=== PATIENT | male | born 1965 | race Two or more races ===

== ENCOUNTER 2023-01-19 17:20 | Inpatient (IN) | payer MEDICAID, OTHER ==
[~2023-01-19] VITALS: Ht 182.9 cm; Wt 92.8 kg
[2023-01-19 18:19] LABS: Basophils # (auto) 0 10 ^3/uL (0-0.2); Basophils % (auto) 0.4 % (0.0-2.0); Eosinophils # (auto) 0.1 10 ^3/uL (0-0.8); Eosinophils % (auto) 1.2 % (0.0-7.0); Hematocrit 48.6 % (41.0-53.0); Hemoglobin 16.6 g/dL (13.5-17.5); Lymphocytes # (auto) 2.5 10 ^3/uL (0.4-5.4); Lymphocytes % (auto) 25.9 % (10.0-50.0); Mean Corpuscular Hemoglobin 31.7 pg (28.0-32.0); Mean Corpuscular Hgb Conc. 34.2 g/dL (32.0-36.0); Mean Corpuscular Volume 92.7 fL (80.0-100.0); Monocytes # (auto) 0.7 10 ^3/uL (0-1.3); Monocytes % (auto) 7.3 % (0.0-12.0); Neutrophils # (auto) 6.2 10 ^3/uL (1.6-8.6); Neutrophils % (auto) 65.2 % (37.0-80.0); Nucleated Red Blood Cells % 0.1 %; Red Blood Cells 5.24 10^6/uL (4.5-5.90); Red Cell Distribution Width 12.5 % (11.8-14.3); White Blood Cell 9.5 10^3/uL (4.4-10.8)
[2023-01-19 18:43] LABS: INR 1.06 (0.9-1.15); Partial Thromboplastin Time 29.1 SEC (24.5-34.5); Prothrombin Time 11.1 sec (9.3-11.8)
[2023-01-19 18:45] LABS: Alanine Aminotransferase 40 U/L (7-40); Albumin 4.9 g/dL (3.2-4.8); Alkaline Phosphatase 89 U/L (46-116); Anion Gap 9 (5-15); Aspartate Aminotransferase 28 U/L (13-40); BUN/Creatinine Ratio 17.6 (10.0-20.0); Blood Urea Nitrogen 16 mg/dL (9-23); Calcium 9.8 mg/dL (8.5-10.1); Carbon Dioxide 25 mmol/L (20-30); Chloride 102 mmol/L (98-107); Glucose 123 mg/dL (74-106); Potassium 4.2 mmol/L (3.5-5.1); Sodium 136 mmol/L (136-145)
[2023-01-19 18:46] LABS: Bilirubin, Total 0.5 mg/dL (0.2-1.0); Total Protein 7.9 g/dL (5.7-8.2)
[2023-01-19] MEDS ORDERED: ASPirin 81 mg TAB PO ONE (19:30)
[2023-01-19] MEDS ORDERED: ONDANSETRON HCL 4 MG/2 ML VIAL IV PRN (21:00)
[2023-01-19] MEDS ORDERED: MORPHINE SULFATE INJ 2 MG/ml SYRG IV PRN (21:00)
[2023-01-19] MEDS ORDERED: NITROGLYCERIN 0.4 MG SL TAB SL PRN (21:00)
[2023-01-19] MEDS ORDERED: ACETAMINOPHEN 325 MG TAB PO PRN (21:00)
[2023-01-19] MEDS ORDERED: DEXTROSE (50%) 50ML SYRG IV PRN (21:15)
[2023-01-19] MEDS: ATORVASTATIN 20 MG TAB PO SCH (22:00)
[2023-01-19] MEDS: ACCU-CHEK COMFORT CURVE STRIP VI SCH (22:00)
[2023-01-19] MEDS: InsuLIN REG 1unit/0.01ml Soln (100units/ml) SC SCH (22:00)
[2023-01-19 23:03] VITALS: PULSE 77; RESP 16; O2SAT 99
[2023-01-20 07:14] LABS: Basophils # (auto) 0.1 10 ^3/uL (0-0.2); Basophils % (auto) 0.6 % (0.0-2.0); Eosinophils # (auto) 0.2 10 ^3/uL (0-0.8); Eosinophils % (auto) 1.9 % (0.0-7.0); Hematocrit 46.6 % (41.0-53.0); Lymphocytes # (auto) 2.5 10 ^3/uL (0.4-5.4); Lymphocytes % (auto) 31.9 % (10.0-50.0); Mean Corpuscular Hemoglobin 31.9 pg (28.0-32.0); Mean Corpuscular Hgb Conc. 34.4 g/dL (32.0-36.0); Mean Corpuscular Volume 92.5 fL (80.0-100.0); Monocytes # (auto) 0.7 10 ^3/uL (0-1.3); Monocytes % (auto) 9.3 % (0.0-12.0); Neutrophils # (auto) 4.4 10 ^3/uL (1.6-8.6); Neutrophils % (auto) 56.3 % (37.0-80.0); Nucleated Red Blood Cells % 0.1 %; Red Blood Cells 5.04 10^6/uL (4.5-5.90); Red Cell Distribution Width 12.4 % (11.8-14.3); White Blood Cell 7.9 10^3/uL (4.4-10.8)
[2023-01-20 07:33] LABS: Chloride 101 mmol/L (98-107); Potassium 3.9 mmol/L (3.5-5.1); Sodium 134 mmol/L (136-145)
[2023-01-20 07:34] LABS: Anion Gap 8 (5-15); Calcium 9.6 mg/dL (8.5-10.1); Carbon Dioxide 25 mmol/L (20-30)
[2023-01-20 07:39] LABS: BUN/Creatinine Ratio 12.8 (10.0-20.0); Blood Urea Nitrogen 11 mg/dL (9-23); Glucose 181 mg/dL (74-106)
[2023-01-20] MEDS: ACCU-CHEK COMFORT CURVE STRIP VI SCH ×4 (08:10→22:28)
[2023-01-20] MEDS: InsuLIN REG 1unit/0.01ml Soln (100units/ml) SC SCH ×4 (09:03→22:32)
[2023-01-20] MEDS ORDERED: ENOXAPARIN SOD 40 MG/0.4 ML SYRINGE SC SCH (10:00)
[2023-01-20] MEDS: amLODIPine BESYLATE 5 MG TAB PO SCH (10:00)
[2023-01-20] MEDS: ASPirin 81 mg TAB PO SCH (10:19)
[2023-01-20] MEDS ORDERED: PANTOPRAZOLE 40 MG TAB PO ONE (11:45)
[2023-01-20] MEDS: NICOTINE 14 MG/24HR TOPICAL PATCH TD ONE ×2 (13:30→13:50)
[2023-01-20 15:12] LABS: Triglycerides 425 mg/dL (< 150)
[2023-01-20 15:13] LABS: Blood Alcohol 3.2 mg/dL (<10)
[2023-01-20 15:14] LABS: Cholesterol 172 mg/dL (< 200); HDL Cholesterol 31 mg/dL (40-59)
[2023-01-20] MEDS: ATORVASTATIN 20 MG TAB PO SCH (22:28)
[2023-01-20] MEDS ORDERED: THIA100T10 GT (23:21)
[2023-01-20] MEDS ORDERED: PANT1INJ3 IV (23:21)
[2023-01-20] MEDS ORDERED: GLYB5TAB9 PO (23:23)
[2023-01-20] MEDS ORDERED: AMLO1TAB23 PO (23:25)
[2023-01-20] MEDS ORDERED: ACET-1304 PO (23:25)
[2023-01-20 23:28] VITALS: BP 133/74; PULSE 65; RESP 18; TEMP 98.5; O2SAT 97
[2023-01-21] VITALS (11 sets, daily range): BP systolic 115–162; BP diastolic 63–89; PULSE 64–72; RESP 11–20; TEMP 97.6–98.4; O2SAT 94–100
[2023-01-21] MEDS: InsuLIN REG 1unit/0.01ml Soln (100units/ml) SC SCH ×4 (06:31→22:24)
[2023-01-21] MEDS: ACCU-CHEK COMFORT CURVE STRIP VI SCH ×4 (06:39→22:20)
[2023-01-21] MEDS: PANTOPRAZOLE 40 MG TAB PO SCH (09:43)
[2023-01-21] MEDS: ASPirin 81 mg TAB PO SCH (09:43)
[2023-01-21] MEDS: amLODIPine BESYLATE 5 MG TAB PO SCH (09:44)
[2023-01-21] MEDS: NICOTINE 14 MG/24HR TOPICAL PATCH TD SCH (09:46)
[2023-01-21] MEDS ORDERED: ANGIOMAX 250 MG VIAL IV ONE (16:48)
[2023-01-21] MEDS ORDERED: HEPARIN SODIUM (PORCINE) 5000 UNITS/ML 1ML VIAL ONE (16:48)
[2023-01-21] MEDS ORDERED: fentaNYL CITRATE 100 MCG/2 ML VL ONE (16:49)
[2023-01-21] MEDS ORDERED: SODIUM CHL 0.9% 0 ML ONE (16:49)
[2023-01-21] MEDS ORDERED: VERAPAMIL 2.5MG/ML INJ 2ML VIAL IV ONE (16:49)
[2023-01-21] MEDS ORDERED: MIDAZOLAM HCL 2MG/2ML 2ml VIAL (1mg/ml) ONE (16:49)
[2023-01-21] MEDS ORDERED: LIDOCAINE 2%HCL (LOCAL ANESTH.) INJ 20ML MDV ONE (16:49)
[2023-01-21] MEDS ORDERED: IODIXANOL 320MG/ML 100ML BTL IV ONE (16:50)
[2023-01-21] MEDS: ATORVASTATIN 20 MG TAB PO SCH (22:18)
[2023-01-22 05:00] VITALS: BP 112/64; PULSE 71; RESP 18; TEMP 97.9; O2SAT 100
[2023-01-22] MEDS: ACCU-CHEK COMFORT CURVE STRIP VI SCH ×2 (06:34→11:39)
[2023-01-22] MEDS: InsuLIN REG 1unit/0.01ml Soln (100units/ml) SC SCH ×2 (06:35→11:52)
[2023-01-22 08:00] VITALS: PULSE 65; RESP 18
[2023-01-22 09:25] VITALS: BP 127/76; PULSE 69; RESP 18; TEMP 98; O2SAT 97
[2023-01-22] MEDS ORDERED: METOPROLOL SUCCINATE XL 50 MG TAB PO SCH (10:00)
[2023-01-22] MEDS ORDERED: ISOSORBIDE MONONITRATE ER 60 MG TAB PO SCH (10:00)
[2023-01-22] MEDS: NICOTINE 14 MG/24HR TOPICAL PATCH TD SCH (10:00)
[2023-01-22] MEDS: PANTOPRAZOLE 40 MG TAB PO SCH (10:37)
[2023-01-22] MEDS: amLODIPine BESYLATE 5 MG TAB PO SCH (10:37)
[2023-01-22] MEDS: ASPirin 81 mg TAB PO SCH (10:37)
[2023-01-22] MEDS ORDERED: METO25TA36 PO (10:39)
[2023-01-22] MEDS ORDERED: ATO40T PO (10:39)
[2023-01-22] MEDS ORDERED: ISOS1TAB28 PO (10:39)
[2023-01-22] MEDS ORDERED: ASPI1TAB20 PO (10:39)
[2023-01-22 11:01] VITALS: BP 127/76; PULSE 69; RESP 18; TEMP 36.7; O2SAT 97
[2023-01-22] MEDS ORDERED: ATORVASTATIN 20 MG TAB PO SCH (22:00)
== END 2023-01-22 12:34 | disposition home or self-care (01) | DRG 191 ==
LOC: ER 17:20 → TELE 20:54 → TELE-WESTW 01-20 22:53
PROVIDERS: ADMIT Nurse Practitioner; ATTEND Internal Medicine Geriatric Medicine
PROC: B211YZZ Fluoroscopy of Multiple Coronary Arteries using Other Contrast (ICD-10-PCS; principal; 2023-01-21)
PROC: 4A033BC Measurement of Arterial Pressure, Coronary, Percutaneous Approach (ICD-10-PCS; 2023-01-21)
DX: I25.110 Atherosclerotic heart disease of native coronary artery with unstable angina pectoris (principal); Q24.5 Malformation of coronary vessels; E11.9 Type 2 diabetes mellitus without complications; F17.210 Nicotine dependence, cigarettes, uncomplicated; I10 Essential (primary) hypertension
CPT/HCPCS: 36415; 71045; 71275; 80048; 80053; 80061; 80320; 82962; 83036; 84443; 84484; 85025; 85610; 85730; 93005; 93306; 93458; 93571; 99152; G0378; J1815; J2250; Q9967

== ENCOUNTER 2023-01-24 07:06 | Emergency (ER) | payer MEDICAID ==
[~2023-01-24] VITALS: Ht 177.8 cm; Wt 88.6 kg
[~2023-01-24 07:06] MED LIST: ACET-1304 PO; AMLO1TAB23 PO; ASPI1TAB20 PO; ATO40T PO; GLYB5TAB9 PO; ISOS1TAB28 PO; METO25TA36 PO; PANT1INJ3 IV; THIA100T10 GT
[2023-01-24 07:10] VITALS: BP 134/72; RESP 16; O2SAT 98
[2023-01-24 07:42] LABS: Basophils # (auto) 0 10 ^3/uL (0-0.2); Basophils % (auto) 0.5 % (0.0-2.0); Eosinophils # (auto) 0.1 10 ^3/uL (0-0.8); Eosinophils % (auto) 1.8 % (0.0-7.0); Hematocrit 42.1 % (41.0-53.0); Hemoglobin 14.7 g/dL (13.5-17.5); Lymphocytes # (auto) 1.8 10 ^3/uL (0.4-5.4); Lymphocytes % (auto) 24.5 % (10.0-50.0); Mean Corpuscular Hemoglobin 32.1 pg (28.0-32.0); Mean Corpuscular Hgb Conc. 34.9 g/dL (32.0-36.0); Mean Corpuscular Volume 91.8 fL (80.0-100.0); Monocytes # (auto) 0.5 10 ^3/uL (0-1.3); Monocytes % (auto) 7.2 % (0.0-12.0); Neutrophils # (auto) 4.8 10 ^3/uL (1.6-8.6); Nucleated Red Blood Cells % 0.1 %; Red Blood Cells 4.59 10^6/uL (4.5-5.90); Red Cell Distribution Width 12.2 % (11.8-14.3); White Blood Cell 7.2 10^3/uL (4.4-10.8)
[2023-01-24 08:02] LABS: Alanine Aminotransferase 28 U/L (7-40); Albumin 4.7 g/dL (3.2-4.8); Alkaline Phosphatase 87 U/L (46-116); Anion Gap 4 (5-15); Aspartate Aminotransferase 18 U/L (13-40); Blood Urea Nitrogen 7 mg/dL (9-23); Carbon Dioxide 28 mmol/L (20-30); Chloride 105 mmol/L (98-107); Glucose 163 mg/dL (74-106); Magnesium 2.1 mg/dL (1.6-2.6); Potassium 4.2 mmol/L (3.5-5.1); Sodium 137 mmol/L (136-145)
[2023-01-24 08:03] LABS: Bilirubin, Total 0.7 mg/dL (0.2-1.0); Total Protein 7.6 g/dL (5.7-8.2)
[2023-01-24 08:05] VITALS: PULSE 64
== END 2023-01-24 09:50 | disposition left against medical advice (07) ==
LOC: ER 07:06
DX: R07.9 Chest pain, unspecified (principal); Z53.21 Procedure and treatment not carried out due to patient leaving prior to being seen by health care provider; Z79.899 Other long term (current) drug therapy
CPT/HCPCS: 36415; 71046; 80053; 83735; 84484; 85025; 93005